=== PATIENT | female | born 1980 | race African-American/Black ===

== ENCOUNTER 2017-05-18 00:32 | Emergency (ER) | payer OTHER ==
[~2017-05-18 00:32] MED LIST: CLONAZEPAM0.5 MG PO; FLEXERIL10 MG PO; IBUPROFEN PO; KETOPROFEN PO; LORTAB 10/500 T1 TAB PO; LORTAB 7.5-5001 TAB PO; MOBIC PO; MULTIVITAMIN1 UDCAP PO; ORUDIS75 M1 PO; PAMELOR PO
[2017-05-18] MEDS ORDERED: KEFLEX500 MG PO (01:35)
== END 2017-05-18 01:02 | disposition home or self-care (01) ==
LOC: CED 00:32
DX: Z53.21 Procedure and treatment not carried out due to patient leaving prior to being seen by health care provider (principal)

== ENCOUNTER 2017-05-18 01:22 | Emergency (ER) | payer OTHER ==
[2017-05-18] MEDS ORDERED: KEFLEX500 MG PO (01:35)
== END 2017-05-18 02:17 | disposition home or self-care (01) ==
LOC: SED 01:22 → CED 02:01 → SED 02:01
DX: L03.011 Cellulitis of right finger (principal); Z79.899 Other long term (current) drug therapy
CPT/HCPCS: 10060; 99283